=== PATIENT | male | born 1935 | race African-American/Black ===

== ENCOUNTER 2022-07-28 21:13 | Inpatient (IN) | payer MEDICARE, OTHER ==
[~2022-07-28] VITALS: Ht 177.8 cm; Wt 76.7 kg
[2022-07-29 03:36] LABS: BASOPHILS % 0.8 % (0.0-2.0); EOSINOPHILS % 0.4 % (0.0-5.0); HEMOGLOBIN. 14.5 g/dL (14.0-18.0); LYMPHOCYTES % 12.5 % (20.0-50.0); MEAN CORPUSCULAR HEMOGLOBIN 28.5 pg (28.0-32.0); MEAN CORPUSCULAR VOLUME 86.4 fL (80.0-94.0); MEAN PLATELET VOLUME 8.4 fl (7.4-10.4); MONOCYTES % 8.6 % (2.0-8.0); NEUTROPHILS % 77.7 % (40.0-76.0); PLATELET 283 x1000/uL (130-400); RED CELL DISTRIBUTION WIDTH 18.1 % (11.6-14.6)
[2022-07-29 03:45] LABS: CHLORIDE 108 mEq/L (98-107)
[2022-07-29 03:52] LABS: ETHANOL BLOOD < 10 mg/dL
[2022-07-29] MEDS ORDERED: POTASSIUM CHLORIDE 20MEQ TABLET SR PO ONE (15:15)
[2022-07-29] MEDS ORDERED: POTASSIUM CHLORIDE 20MEQ TABLET SR PO NR (22:00)
[2022-07-29] MEDS ORDERED: CLONIDINE 0.1MG TABLET PO PRN (22:00)
[2022-07-29] MEDS ORDERED: GUAIFENESIN 200MG/10ML SUGAR FREE UDC PO PRN (22:00)
[2022-07-29] MEDS ORDERED: HALOPERIDOL LACTATE 5MG/ML VIAL IM PRN (22:00)
[2022-07-29] MEDS ORDERED: IPRATROPIUM/ALBUTEROL 0.5-3(2.5)MG/3ML NEB NEB PRN (22:00)
[2022-07-29] MEDS ORDERED: DOCUSATE SODIUM 100MG CAPSULE PO PRN (22:00)
[2022-07-29] MEDS ORDERED: ONDANSETRON HCL 4MG/2ML INJ IV PRN (22:00)
[2022-07-29] MEDS ORDERED: NITROGLYCERIN 0.4MG TABLET SL SL PRN (22:00)
[2022-07-29] MEDS ORDERED: MAGNESIUM/ALUMINUM HYDROXIDE/SIMETHICONE 30ML UDC PO PRN (22:00)
[2022-07-29] MEDS ORDERED: ZOLPIDEM TARTRATE 5MG TABLET PO PRN (22:00)
[2022-07-29] MEDS ORDERED: ACETAMINOPHEN 325MG TABLET PO PRN (22:00)
[2022-07-29] MEDS ORDERED: DEXTROSE 50% WATER 50ML SYRINGE IV PRN (22:45)
[2022-07-29 23:42] LABS: T4 FREE 1.25 ng/dL (0.76-1.46)
[2022-07-29 23:57] LABS: FOLIC ACID (FOLATE) SERUM 18.2 ng/mL (>5.38)
[2022-07-30 05:07] LABS: BASOPHILS % 0.6 % (0.0-2.0); EOSINOPHILS % 0.8 % (0.0-5.0); HEMATOCRIT. 44.2 % (42.0-52.0); HEMOGLOBIN. 14.4 g/dL (14.0-18.0); LYMPHOCYTES % 13.3 % (20.0-50.0); MEAN CORPUSCULAR HEMOGLOBIN 28.3 pg (28.0-32.0); MEAN CORPUSCULAR VOLUME 86.7 fL (80.0-94.0); MEAN PLATELET VOLUME 8.3 fl (7.4-10.4); MONOCYTES % 9.4 % (2.0-8.0); NEUTROPHILS % 75.9 % (40.0-76.0); PLATELET 266 x1000/uL (130-400); RED CELL DISTRIBUTION WIDTH 17.4 % (11.6-14.6)
[2022-07-30 05:21] LABS: CHLORIDE 110 mEq/L (98-107)
[2022-07-30 05:29] LABS: PHOSPHORUS 2.4 mg/dL (2.5-4.9)
[2022-07-30 05:47] LABS: CLARITY URINE TURBID (CLEAR); COLOR URINE YELLOW (YELLOW); KETONES URINE 2+ (NEGATIVE); LEUKOCYTE ESTERASE URINE 2+ (NEGATIVE); NITRITE URINE NEGATIVE (NEGATIVE); OCCULT BLOOD URINE 2+ (NEGATIVE); PROTEIN URINE 1+ (NEGATIVE); SPECIFIC GRAVITY URINE 1.036 (1.005-1.030)
[2022-07-30 06:31] LABS: *AMPHETAMINES SCREEN URINE NEGATIVE (NEGATIVE); *BARBITURATES SCREEN URINE NEGATIVE (NEGATIVE); *BENZODIAZEPINES SCREEN URINE NEGATIVE (NEGATIVE); *COCAINE SCREEN URINE NEGATIVE (NEGATIVE); CANNABINOID URINE SCREEN NEGATIVE (NEGATIVE); METHADONE URINE SCREEN NEGATIVE (NEGATIVE); OPIATES URINE SCREEN NEGATIVE (NEGATIVE); PHENCYCLIDINE URINE SCREEN NEGATIVE (NEGATIVE)
[2022-07-30] MEDS: INSULIN LISPRO 100 UNITS/ML SUBCUT SCH ×3 (07:00→20:56)
[2022-07-30] MEDS: BLOOD SUGAR DIAGNOSTIC STRIP TEST SCH ×3 (07:19→20:54)
[2022-07-30] MEDS: AMLODIPINE 10MG TABLET PO SCH (09:34)
[2022-07-30] MEDS: ASPIRIN 325MG EC TABLET PO SCH (09:34)
[2022-07-30] MEDS: FAMOTIDINE 20MG TABLET PO SCH ×2 (09:35→20:48)
[2022-07-30] MEDS ORDERED: CEFTRIAXONE 1 G PREMIX 50 ML IV SCH (14:30)
[2022-07-30] MEDS ORDERED: SODIUM PHOS,M-BASIC-D-BASIC 15 MM in DEXT 5% WATER 250 ML IV SCH (16:00)
[2022-07-30] MEDS ORDERED: CEFTRIAXONE 1,000 MG in DEXTROSE 5% WATER 50 ML IV SCH (16:00)
[2022-07-30 19:32] VITALS: BP 143/52
[2022-07-30] MEDS: HALOPERIDOL 0.5MG TABLET PO SCH (20:49)
[2022-07-30 20:58] VITALS: BP 138/64
[2022-07-31 00:44] VITALS: BP 169/68
[2022-07-31] MEDS ORDERED: *PATIENT'S OWN MEDICATION STORAGE XX SCH (03:15)
[2022-07-31 04:51] VITALS: BP 148/62
[2022-07-31] MEDS: BLOOD SUGAR DIAGNOSTIC STRIP TEST SCH ×4 (06:27→21:00)
[2022-07-31 07:32] LABS: BASOPHILS % 0.7 % (0.0-2.0); EOSINOPHILS % 0.8 % (0.0-5.0); HEMOGLOBIN. 14.6 g/dL (14.0-18.0); LYMPHOCYTES % 13.2 % (20.0-50.0); MEAN CORPUSCULAR HEMOGLOBIN 28.8 pg (28.0-32.0); MEAN CORPUSCULAR VOLUME 86.6 fL (80.0-94.0); MEAN PLATELET VOLUME 8.7 fl (7.4-10.4); MONOCYTES % 9.4 % (2.0-8.0); NEUTROPHILS % 75.9 % (40.0-76.0); PLATELET 256 x1000/uL (130-400); RED BLOOD CELL COUNT 5.08 mill/uL (4.7-6.1); RED CELL DISTRIBUTION WIDTH 17.7 % (11.6-14.6)
[2022-07-31 07:40] LABS: CHLORIDE 105 mEq/L (98-107)
[2022-07-31] MEDS: INSULIN LISPRO 100 UNITS/ML SUBCUT SCH ×4 (07:43→21:00)
[2022-07-31 07:47] LABS: PHOSPHORUS 2.4 mg/dL (2.5-4.9)
[2022-07-31 08:00] VITALS: BP 173/84
[2022-07-31] MEDS: HALOPERIDOL 0.5MG TABLET PO SCH (08:49)
[2022-07-31] MEDS: FAMOTIDINE 20MG TABLET PO SCH ×2 (08:49→21:00)
[2022-07-31] MEDS: ASPIRIN 325MG EC TABLET PO SCH (08:49)
[2022-07-31] MEDS: AMLODIPINE 10MG TABLET PO SCH (08:50)
[2022-07-31 12:00] VITALS: BP 124/66
[2022-07-31 16:00] VITALS: BP 133/72
[2022-07-31] MEDS: POLYVINYL ALCOHOL OPHTH DROPS 15ML EACHEYE SCH ×2 (16:24→18:49)
[2022-07-31 20:00] VITALS: BP 169/79
[2022-08-01] VITALS: BP 147/79
[2022-08-01] MEDS: HALOPERIDOL 0.5MG TABLET PO SCH ×3 (01:26→22:00)
[2022-08-01 04:00] VITALS: BP 152/94
[2022-08-01] MEDS: BLOOD SUGAR DIAGNOSTIC STRIP TEST SCH ×4 (07:22→21:12)
[2022-08-01] MEDS: INSULIN LISPRO 100 UNITS/ML SUBCUT SCH ×4 (07:22→21:00)
[2022-08-01 08:00] VITALS: BP 166/73
[2022-08-01] MEDS: FAMOTIDINE 20MG TABLET PO SCH ×3 (08:01→22:00)
[2022-08-01] MEDS: AMLODIPINE 10MG TABLET PO SCH (08:01)
[2022-08-01] MEDS: ASPIRIN 325MG EC TABLET PO SCH (08:01)
[2022-08-01] MEDS: POLYVINYL ALCOHOL OPHTH DROPS 15ML EACHEYE SCH ×3 (08:02→17:14)
[2022-08-01 16:00] VITALS: BP 154/68
[2022-08-01] MEDS ORDERED: EZET-82 (17:59)
[2022-08-01] MEDS ORDERED: SITA50TA3 PO (17:59)
[2022-08-01] MEDS ORDERED: CLOP75TA33 PO (17:59)
[2022-08-01] MEDS ORDERED: CRES10 PO (17:59)
[2022-08-01] MEDS: ACETAMINOPHEN 325MG TABLET PO PRN (18:55)
[2022-08-01 20:00] VITALS: BP 154/73
[2022-08-02] VITALS: BP 160/86
[2022-08-02 04:00] VITALS: BP 164/91
[2022-08-02] MEDS: INSULIN LISPRO 100 UNITS/ML SUBCUT SCH ×3 (07:50→17:50)
[2022-08-02 08:00] VITALS: BP 156/76
[2022-08-02] MEDS: FAMOTIDINE 20MG TABLET PO SCH (08:04)
[2022-08-02] MEDS: AMLODIPINE 10MG TABLET PO SCH (08:04)
[2022-08-02] MEDS: HALOPERIDOL 0.5MG TABLET PO SCH (08:04)
[2022-08-02] MEDS: ACETAMINOPHEN 325MG TABLET PO PRN (08:04)
[2022-08-02] MEDS: BLOOD SUGAR DIAGNOSTIC STRIP TEST SCH ×4 (08:05→21:00)
[2022-08-02] MEDS: POLYVINYL ALCOHOL OPHTH DROPS 15ML EACHEYE SCH ×3 (08:05→18:02)
[2022-08-02] MEDS: ASPIRIN 325MG EC TABLET PO SCH (08:05)
[2022-08-02] MEDS ORDERED: CEFTRIAXONE 1 G PREMIX 50 ML IV SCH (09:45)
[2022-08-02] MEDS: ENOXAPARIN 40MG/0.4ML SYR SUBCUT SCH (12:11)
[2022-08-02] MEDS: CEFTRIAXONE 1,000 MG in DEXTROSE 5% WATER 50 ML IV SCH (12:12)
[2022-08-02 16:00] VITALS: BP 146/72
[2022-08-02 20:00] VITALS: BP 163/82
[2022-08-03] VITALS: BP 155/76
[2022-08-03] MEDS: HALOPERIDOL 0.5MG TABLET PO SCH ×2 (00:05→09:06)
[2022-08-03] MEDS: INSULIN LISPRO 100 UNITS/ML SUBCUT SCH ×3 (00:06→12:41)
[2022-08-03 04:00] VITALS: BP 137/75
[2022-08-03] MEDS: BLOOD SUGAR DIAGNOSTIC STRIP TEST SCH ×2 (07:20→12:41)
[2022-08-03 08:00] VITALS: BP 152/83
[2022-08-03] MEDS: ASPIRIN 325MG EC TABLET PO SCH (09:06)
[2022-08-03] MEDS: AMLODIPINE 10MG TABLET PO SCH (09:06)
[2022-08-03] MEDS: ENOXAPARIN 40MG/0.4ML SYR SUBCUT SCH (09:06)
[2022-08-03] MEDS: FAMOTIDINE 20MG TABLET PO SCH (09:06)
[2022-08-03] MEDS: POLYVINYL ALCOHOL OPHTH DROPS 15ML EACHEYE SCH ×2 (09:07→12:41)
[2022-08-03] MEDS: ACETAMINOPHEN 325MG TABLET PO PRN ×2 (09:13→12:37)
[2022-08-03 12:00] VITALS: BP 150/72
[2022-08-03] MEDS: CEFTRIAXONE 1,000 MG in DEXTROSE 5% WATER 50 ML IV SCH (12:39)
[2022-08-03 15:26] VITALS: BP 150/72
[2022-08-03 16:00] VITALS: BP 152/71
== END 2022-08-03 17:18 | DRG 92 ==
LOC: ER 21:13 → MICUSO 07-29 20:47 → EDBEDREQTM 07-29 20:49 → EDBEDREQ 07-29 20:49 → SUPCPDRO 07-29 21:53 → 6EST 07-30 13:25
PROVIDERS: ADMIT Internal Medicine; ATTEND Internal Medicine
DX: G92.8 Other toxic encephalopathy (principal); E44.0 Moderate protein-calorie malnutrition; Z20.822 Contact with and (suspected) exposure to COVID-19; E87.6 Hypokalemia; F03.90 Unspecified dementia, unspecified severity, without behavioral disturbance, psychotic disturbance, mood disturbance, and anxiety; H91.90 Unspecified hearing loss, unspecified ear; E11.9 Type 2 diabetes mellitus without complications; I10 Essential (primary) hypertension; Z79.899 Other long term (current) drug therapy; Z68.24 Body mass index [BMI] 24.0-24.9, adult
CPT/HCPCS: 36415; 80053; 80061; 80305; 80320; 81003; 82607; 82962; 83036; 83540; 83735; 84100; 84439; 84443; 85025; 87426; 93306; 93970; 97116; 97162; 97166; 97530; 99285; J0696; J1650; J1815; J3490; J7060; G0480

== ENCOUNTER 2022-08-20 08:22 | Inpatient (IN) | payer MEDICARE, OTHER ==
[~2022-08-20] VITALS: Ht 167.6 cm; Wt 69.9 kg
[2022-08-20] VITALS (10 sets, daily range): BP systolic 40–128; BP diastolic 15–80
[~2022-08-20 08:22] MED LIST: CLOP75TA33 PO; CRES10 PO; SITA50TA3 PO
[2022-08-20] MEDS ORDERED: SODIUM CHLORIDE 0.9% 1000ML BAG (SEPSIS BOLUS) IV ONE (08:30)
[2022-08-20 08:48] LABS: HEMATOCRIT. 42.2 % (42.0-52.0); HEMOGLOBIN. 13.6 g/dL (14.0-18.0); MEAN CORPUSCULAR HEMOGLOBIN 29.1 pg (28.0-32.0); MEAN CORPUSCULAR VOLUME 90.3 fL (80.0-94.0); MEAN PLATELET VOLUME 8.8 fl (7.4-10.4); PLATELET 435 x1000/uL (130-400); RED BLOOD CELL COUNT 4.67 mill/uL (4.7-6.1); RED CELL DISTRIBUTION WIDTH 19.8 % (11.6-14.6)
[2022-08-20 08:51] LABS: INR 1.1; PROTHROMBIN TIME 11.6 sec (9.6-11.0)
[2022-08-20 08:53] LABS: CHLORIDE 113 mEq/L (98-107)
[2022-08-20] MEDS ORDERED: PIPERACILLIN/TAZ 3.375G PREMIX 50 ML IV ONE (09:00)
[2022-08-20] MEDS ORDERED: VANCOMYCIN 1G PREMIX 200 ML IV ONE (09:00)
[2022-08-20] MEDS ORDERED: PIPERACILLIN/TAZ 3.375G PREMIX 50 ML IV NR (09:10)
[2022-08-20 09:17] LABS: PLATELET ESTIMATE SLIGHTLY INCREASED
[2022-08-20 09:30] LABS: BG BASE EXCESS -7.7 mmol/L (-2.0-2.0); BG CARBOXYHEMOGLOBIN 0.3 % (0.5-1.5); BG DEOXYHEMOGLOBIN 0.3 % (0.0-5.0); BG FRACTION INSPIRED OXYGEN 100; BG HCO3 ACT 14.9 mmol/L (22.0-26.0); BG METHEMOGLOBIN 0.4 % (0.0-1.5); BG OXYGEN SATURATION 99.7 % (92.0-98.5); BG PH 7.412 (7.350-7.450); BG SAMPLE SITE LEFT RADIAL; BG TOTAL RESPIRATORY RATE 30 b/min; BG VENT MODE MASK - BIPAP
[2022-08-20] MEDS ORDERED: GUAIFENESIN 200MG/10ML SUGAR FREE UDC PO PRN (12:00)
[2022-08-20] MEDS ORDERED: ONDANSETRON HCL 4MG/2ML INJ IV PRN (12:00)
[2022-08-20] MEDS ORDERED: DIPHENHYDRAMINE 50MG/ML VIAL IV PRN (12:00)
[2022-08-20] MEDS ORDERED: IPRATROPIUM/ALBUTEROL 0.5-3(2.5)MG/3ML NEB NEB PRN (12:00)
[2022-08-20] MEDS ORDERED: ACETAMINOPHEN 325MG TABLET PO PRN ×2 (12:00)
[2022-08-20] MEDS ORDERED: NA PHOS,M-B/NA PHOS,DI-BA ENEMA 118ML PR PRN (12:00)
[2022-08-20] MEDS ORDERED: DOCUSATE SODIUM 100MG CAPSULE PO PRN (12:00)
[2022-08-20] MEDS ORDERED: ZOLPIDEM TARTRATE 5MG TABLET PO PRN (12:00)
[2022-08-20] MEDS ORDERED: NITROGLYCERIN 0.4MG TABLET SL SL PRN (12:00)
[2022-08-20] MEDS ORDERED: ENOXAPARIN 40MG/0.4ML SYR SUBCUT SCH (12:00)
[2022-08-20] MEDS: DEXT 5%/LACTATED RINGERS 1,000 ML IV SCH (12:36)
[2022-08-20] MEDS: IPRATROPIUM/ALBUTEROL 0.5-3(2.5)MG/3ML NEB HHN SCH ×2 (16:50→20:41)
[2022-08-20] MEDS ORDERED: PIPERACILLIN/TAZ 3.375G PREMIX 50 ML IV SCH (18:00)
[2022-08-20] MEDS ORDERED: POTASSIUM CHLORIDE INJ 40 MEQ in DEXT 5% WATER 250 ML IV ONE (18:15)
[2022-08-20] MEDS: KCL 20MEQ/100ML X 2 FOR TOTAL KCL 40MEQ/200ML IV SCH ×2 (19:05→21:26)
[2022-08-20] MEDS: ASCORBIC ACID 500 MG TABLET PO SCH (21:00)
[2022-08-20] MEDS: FAMOTIDINE 20MG TABLET PO SCH (21:00)
[2022-08-20] MEDS: BLOOD SUGAR DIAGNOSTIC STRIP TEST SCH (21:00)
[2022-08-20] MEDS: PIPERACILLIN/TAZOBACTAM 3.375G in DEXT 5% WATER 50ML IV SCH (21:06)
[2022-08-20] MEDS: INSULIN LISPRO 100 UNITS/ML SUBCUT SCH (21:17)
[2022-08-20] MEDS ORDERED: SODIUM CHLORIDE 0.9% 500 ML IV ONE (21:45)
[2022-08-20] MEDS ORDERED: PHENYLEPHRINE 100 MG in DEXT 5% WATER 240 ML IV PRN (21:45)
[2022-08-20] MEDS ORDERED: SODIUM CHLORIDE 0.9% 1000ML BAG (SEPSIS BOLUS) IV NR (21:45)
[2022-08-20 22:02] LABS: BG BASE EXCESS -16.1 mmol/L (-2.0-2.0); BG CARBOXYHEMOGLOBIN 0.1 % (0.5-1.5); BG DEOXYHEMOGLOBIN 3.8 % (0.0-5.0); BG FRACTION INSPIRED OXYGEN 40; BG HCO3 ACT 8.2 mmol/L (22.0-26.0); BG METHEMOGLOBIN 0.1 % (0.0-1.5); BG OXYGEN SATURATION 96.2 % (92.0-98.5); BG PCO2 17.9 mmHg (35.0-45.0); BG PH 7.279 (7.350-7.450); BG PO2 94.2 mmHg (75.0-100.0); BG SAMPLE SITE RIGHT RADIAL; BG TOTAL HEMOGLOBIN 13.6 g/dL (12.0-18.0); BG TOTAL RESPIRATORY RATE 40 b/min; BG VENT MODE MASK - BIPAP
[2022-08-20] MEDS ORDERED: SODIUM BICARBONATE 8.4% 1 MEQ/ML 50ML SYR IV NR (22:15)
[2022-08-20 22:41] LABS: CREATINE KINASE MB FRACTION 9.7 ng/mL (0.5-3.6)
[2022-08-20] MEDS ORDERED: SODIUM CHLORIDE 0.9% 500 ML IV NR (23:00)
[2022-08-20] MEDS: PHENYLEPHRINE 100 MG in DEXT 5% WATER 240 ML IV PRN (23:16)
[2022-08-20] MEDS ORDERED: SODIUM BICARBONATE 150 MEQ in DEXTROSE 5% WATER 1,000 ML IV SCH (23:30)
[2022-08-21] VITALS (84 sets, daily range): BP systolic 53–233; BP diastolic 18–125
[2022-08-21] MEDS: KCL 20MEQ/100ML X 2 FOR TOTAL KCL 40MEQ/200ML IV SCH
[2022-08-21] MEDS ORDERED: MIDAZOLAM HCL 100 MG in SODIUM CHLORIDE 0.9% 80 ML IV PRN ×2
[2022-08-21 00:36] LABS: BG BASE EXCESS -7.2 mmol/L (-2.0-2.0); BG CARBOXYHEMOGLOBIN 0.3 % (0.5-1.5); BG DEOXYHEMOGLOBIN 4.9 % (0.0-5.0); BG FRACTION INSPIRED OXYGEN 60; BG HCO3 ACT 16.9 mmol/L (22.0-26.0); BG METHEMOGLOBIN 0.3 % (0.0-1.5); BG OXYGEN SATURATION 95.1 % (92.0-98.5); BG OXYHEMOGLOBIN 94.5 % (94.0-97.0); BG PCO2 30.4 mmHg (35.0-45.0); BG PH 7.364 (7.350-7.450); BG PO2 78.1 mmHg (75.0-100.0); BG SAMPLE SITE RIGHT FEMORAL; BG TOTAL HEMOGLOBIN 12.9 g/dL (12.0-18.0); BG TOTAL RESPIRATORY RATE 34 b/min; BG VENT MODE VENT - AC
[2022-08-21] MEDS: IPRATROPIUM/ALBUTEROL 0.5-3(2.5)MG/3ML NEB HHN SCH ×6 (00:52→20:31)
[2022-08-21] MEDS: DEXT 5%/LACTATED RINGERS 1,000 ML IV SCH (01:23)
[2022-08-21] MEDS ORDERED: VANCOMYCIN 1GM PMX (XELLIA) 200 ML IV SCH (04:00)
[2022-08-21] MEDS: FENTANYL 2500MCG/250ML PMX 250 ML IV PRN ×2 (04:47→19:46)
[2022-08-21] MEDS: BLOOD SUGAR DIAGNOSTIC STRIP TEST SCH ×4 (05:33→23:31)
[2022-08-21] MEDS: PIPERACILLIN/TAZOBACTAM 3.375G in DEXT 5% WATER 50ML IV SCH ×3 (05:35→21:20)
[2022-08-21] MEDS: INSULIN LISPRO 100 UNITS/ML SUBCUT SCH ×4 (05:36→23:50)
[2022-08-21 08:13] LABS: BG BASE EXCESS -0.5 mmol/L (-2.0-2.0); BG CARBOXYHEMOGLOBIN 0.3 % (0.5-1.5); BG DEOXYHEMOGLOBIN 9.2 % (0.0-5.0); BG HCO3 ACT 21.2 mmol/L (22.0-26.0); BG METHEMOGLOBIN 0.1 % (0.0-1.5); BG OXYGEN SATURATION 90.8 % (92.0-98.5); BG OXYHEMOGLOBIN 90.4 % (94.0-97.0); BG PCO2 27.1 mmHg (35.0-45.0); BG PH 7.512 (7.350-7.450); BG PO2 57.1 mmHg (75.0-100.0); BG SAMPLE SITE RIGHT FEMORAL; BG TOTAL HEMOGLOBIN 12.9 g/dL (12.0-18.0); BG VENT MODE VENT - AC
[2022-08-21 09:03] LABS: HEMATOCRIT. 37.9 % (42.0-52.0); HEMOGLOBIN. 12.6 g/dL (14.0-18.0); MEAN CORPUSCULAR HEMOGLOBIN 29.3 pg (28.0-32.0); MEAN CORPUSCULAR VOLUME 88.2 fL (80.0-94.0); PLATELET 348 x1000/uL (130-400); RED CELL DISTRIBUTION WIDTH 19.9 % (11.6-14.6)
[2022-08-21 09:15] LABS: PHOSPHORUS 1.4 mg/dL (2.5-4.9)
[2022-08-21 09:17] LABS: BETA HYDROXYBUTYRATE 0.2 mMol/L (0.0-0.3)
[2022-08-21 09:24] LABS: T4 FREE 1.12 ng/dL (0.76-1.46)
[2022-08-21] MEDS ORDERED: MAGNESIUM 2 G PREMIX 50 ML IV NR (09:30)
[2022-08-21] MEDS: ZINC SULFATE 220 MG ( 50 ) CAPSULE PO SCH (09:59)
[2022-08-21] MEDS: FAMOTIDINE 20MG TABLET PO SCH (09:59)
[2022-08-21] MEDS: CHOLECALCIFEROL (D3) 1000 UNIT TABLET PO SCH (09:59)
[2022-08-21] MEDS: ASCORBIC ACID 500 MG TABLET PO SCH ×2 (09:59→20:23)
[2022-08-21] MEDS: ASPIRIN 81MG EC TABLET PO SCH (09:59)
[2022-08-21] MEDS: CITRIC ACID/SODIUM CITRATE SOLN 30ML UDC PO SCH ×3 (09:59→17:00)
[2022-08-21] MEDS ORDERED: POTASSIUM PHOS,M-BASIC-D-BASIC 30 MMOL in SODIUM CHLORIDE 0.9% 500 ML IV NR (11:00)
[2022-08-21] MEDS: DEXTROSE 5% WATER 1,000 ML IV SCH ×2 (11:03→20:09)
[2022-08-21] MEDS: ENOXAPARIN 30MG/0.3ML SYR SUBCUT SCH (11:05)
[2022-08-21 11:07] LABS: NUCLEATED RED BLOOD CELLS 1 /100 WBC; PLATELET ESTIMATE NORMAL
[2022-08-21] MEDS: NOREPINEPHRINE 32 MG in DEXT 5% WATER 218 ML IV PRN ×2 (11:39→19:58)
[2022-08-21] MEDS: PHENYLEPHRINE 100 MG in DEXT 5% WATER 240 ML IV PRN ×2 (12:42→19:58)
[2022-08-21] MEDS ORDERED: LIDOCAINE HCL 1% 30ML VIAL (10MG/ML) ONE (13:52)
[2022-08-21] MEDS ORDERED: SODIUM CHLORIDE 0.45% 500 ML IV ONE (14:00)
[2022-08-21] MEDS: VASOPRESSIN 20 UNIT in SODIUM CHLORIDE 0.9% 99 ML IV PRN (16:07)
[2022-08-21 16:37] LABS: CLARITY URINE TURBID (CLEAR); COLOR URINE DARK YELLOW (YELLOW); KETONES URINE TRACE (NEGATIVE); LEUKOCYTE ESTERASE URINE 2+ (NEGATIVE); NITRITE URINE NEGATIVE (NEGATIVE); OCCULT BLOOD URINE 3+ (NEGATIVE); PROTEIN URINE 1+ (NEGATIVE); SPECIFIC GRAVITY URINE 1.021 (1.005-1.030)
[2022-08-21] MEDS ORDERED: ALBUMIN HUMAN 25GM/100ML (25%) IV NR (20:00)
[2022-08-21] MEDS ORDERED: DOPAMINE 800MG/500ML PREMIX 500 ML IV PRN (20:00)
[2022-08-22] VITALS (49 sets, daily range): BP systolic 0–136; BP diastolic 0–91
[2022-08-22] MEDS: IPRATROPIUM/ALBUTEROL 0.5-3(2.5)MG/3ML NEB HHN SCH ×6 (00:42→20:33)
[2022-08-22 05:02] LABS: HEMOGLOBIN. 11.9 g/dL (14.0-18.0); MEAN CORPUSCULAR HEMOGLOBIN 29.5 pg (28.0-32.0); MEAN CORPUSCULAR VOLUME 91.8 fL (80.0-94.0); MEAN PLATELET VOLUME 9.4 fl (7.4-10.4); PLATELET 187 x1000/uL (130-400); RED BLOOD CELL COUNT 4.03 mill/uL (4.7-6.1); RED CELL DISTRIBUTION WIDTH 20.3 % (11.6-14.6)
[2022-08-22] MEDS: BLOOD SUGAR DIAGNOSTIC STRIP TEST SCH ×3 (05:17→17:24)
[2022-08-22 05:27] LABS: PHOSPHORUS 5.7 mg/dL (2.5-4.9)
[2022-08-22] MEDS: PIPERACILLIN/TAZOBACTAM 3.375G in DEXT 5% WATER 50ML IV SCH (05:33)
[2022-08-22] MEDS: DEXTROSE 5% WATER 1,000 ML IV SCH (05:33)
[2022-08-22] MEDS: INSULIN LISPRO 100 UNITS/ML SUBCUT SCH ×3 (05:35→17:24)
[2022-08-22] MEDS ORDERED: SODIUM POLYSTYRENE SULFONATE 15 G/60 ML BOT PO NR (06:00)
[2022-08-22] MEDS ORDERED: DEXT 5%/0.45% NACL 1000ML 1,000 ML IV SCH ×2 (06:00→18:30)
[2022-08-22] MEDS: NOREPINEPHRINE 32 MG in DEXT 5% WATER 218 ML IV PRN ×3 (06:31→17:09)
[2022-08-22 07:55] LABS: ATYPICAL LYMPHOCYTES 3; NUCLEATED RED BLOOD CELLS 4 /100 WBC; PLATELET ESTIMATE NORMAL
[2022-08-22] MEDS: CITRIC ACID/SODIUM CITRATE SOLN 30ML UDC PO SCH ×3 (08:39→17:23)
[2022-08-22] MEDS: ZINC SULFATE 220 MG ( 50 ) CAPSULE PO SCH (08:40)
[2022-08-22] MEDS: CHOLECALCIFEROL (D3) 1000 UNIT TABLET PO SCH (08:40)
[2022-08-22] MEDS: ASPIRIN 81MG EC TABLET PO SCH (08:45)
[2022-08-22] MEDS: ENOXAPARIN 30MG/0.3ML SYR SUBCUT SCH (08:59)
[2022-08-22] MEDS ORDERED: FAMOTIDINE 20MG TABLET PO SCH (09:00)
[2022-08-22 10:08] LABS: BG BASE EXCESS -8.6 mmol/L (-2.0-2.0); BG CARBOXYHEMOGLOBIN 0.4 % (0.5-1.5); BG DEOXYHEMOGLOBIN 3.3 % (0.0-5.0); BG FRACTION INSPIRED OXYGEN 100; BG HCO3 ACT 16.1 mmol/L (22.0-26.0); BG METHEMOGLOBIN 0.3 % (0.0-1.5); BG OXYGEN SATURATION 96.7 % (92.0-98.5); BG PCO2 30.8 mmHg (35.0-45.0); BG PH 7.336 (7.350-7.450); BG PO2 86.6 mmHg (75.0-100.0); BG SAMPLE SITE LEFT RADIAL; BG VENT MODE VENT - AC
[2022-08-22] MEDS ORDERED: VANCOMYCIN 500MG PREMIX 100 ML IV SCH (11:00)
[2022-08-22] MEDS ORDERED: VANCOMYCIN 750MG PMX (XELLIA) 150 ML IV SCH (11:00)
[2022-08-22] MEDS: VASOPRESSIN 20 UNIT in SODIUM CHLORIDE 0.9% 99 ML IV PRN (11:31)
[2022-08-22] MEDS: VANCOMYCIN 1000MG/20ML ORAL SOLN PO SCH ×2 (11:32→17:24)
[2022-08-22] MEDS ORDERED: METRONIDAZOLE 500 MG PREMIX 100 ML IV SCH (12:00)
[2022-08-22] MEDS ORDERED: DOPAMINE 800 MG PREMIX 250 ML IV PRN (12:00)
[2022-08-22] MEDS: PHENYLEPHRINE 100 MG in DEXT 5% WATER 240 ML IV PRN (12:33)
[2022-08-22] MEDS ORDERED: SODIUM CHLORIDE 0.9% 1,000 ML IV NR (17:15)
[2022-08-22] MEDS: DEXTROSE 50% WATER 50ML SYRINGE IV PRN ×2 (17:46→18:46)
[2022-08-22] MEDS ORDERED: HYDROCORTISONE SOD SUCCINATE 100 MG/2 ML VIAL IV SCH (22:00)
== END 2022-08-23 11:30 | DRG 871 ==
LOC: ER 08:22 → 5EST 10:52 → EDBEDREQ 10:53 → EDBEDREQTM 10:53 → ENRESERV 15:58 → MICUNO 22:38
PROVIDERS: ADMIT Internal Medicine; ATTEND Internal Medicine
PROC: 5A1945Z Respiratory Ventilation, 24-96 Consecutive Hours (ICD-10-PCS; principal; 2022-08-20)
PROC: 0BH17EZ Insertion of Endotracheal Airway into Trachea, Via Natural or Artificial Opening (ICD-10-PCS; 2022-08-20)
PROC: 5A09357 Assistance with Respiratory Ventilation, Less than 24 Consecutive Hours, Continuous Positive Airway Pressure (ICD-10-PCS; 2022-08-20)
PROC: 02HV33Z Insertion of Infusion Device into Superior Vena Cava, Percutaneous Approach (ICD-10-PCS; 2022-08-21)
PROC: B548ZZA Ultrasonography of Superior Vena Cava, Guidance (ICD-10-PCS; 2022-08-21)
DX: A41.9 Sepsis, unspecified organism (principal); E43 Unspecified severe protein-calorie malnutrition; J18.9 Pneumonia, unspecified organism; J96.01 Acute respiratory failure with hypoxia; R65.21 Severe sepsis with septic shock; N17.0 Acute kidney failure with tubular necrosis; E87.0 Hyperosmolality and hypernatremia; E87.20 Acidosis, unspecified; E87.3 Alkalosis; I31.39 Other pericardial effusion (noninflammatory); I82.412 Acute embolism and thrombosis of left femoral vein; A04.72 Enterocolitis due to Clostridium difficile, not specified as recurrent; Z20.822 Contact with and (suspected) exposure to COVID-19; D63.8 Anemia in other chronic diseases classified elsewhere; E11.65 Type 2 diabetes mellitus with hyperglycemia; E87.6 Hypokalemia; I10 Essential (primary) hypertension; F03.90 Unspecified dementia, unspecified severity, without behavioral disturbance, psychotic disturbance, mood disturbance, and anxiety; N40.0 Benign prostatic hyperplasia without lower urinary tract symptoms; E83.39 Other disorders of phosphorus metabolism; E83.42 Hypomagnesemia; J44.9 Chronic obstructive pulmonary disease, unspecified; I45.10 Unspecified right bundle-branch block; Z66 Do not resuscitate; Z68.30 Body mass index [BMI] 30.0-30.9, adult; Z68.24 Body mass index [BMI] 24.0-24.9, adult
CPT/HCPCS: 31500; 36415; 36573; 36600; 71045; 76770; 78580; 80048; 80053; 80061; 80202; 81003; 82010; 82270; 82375; 82550; 82553; 82805; 82962; 83036; 83605; 83735; 83880; 84100; 84145; 84439; 84443; 84484; 85025; 87015; 87045; 87070; 87077; 87106; 87186; 87426; 87427; 87449; 87493; 93005; 93308; 93970; 94002; 94003; 94640; 94660; 99291; C1725; C9803; J1265; J1650; J1815; J2370; J2543; J3010; J3370; J3475; J3480; J3490; J7030; J7040; J7050; J7060; J7070; P9047; A4315